=== PATIENT | male | born 1990 | race African-American/Black ===

== ENCOUNTER 2018-06-16 01:11 | Emergency (ER) | payer MEDICARE, OTHER ==
[~2018-06-16] VITALS: Ht 177.8 cm; Wt 72.6 kg
--- NOTE | 2018-06-16 01:35 | Emergency Room Report ---
History of Present Illness General Chief Complaint: Skin Rash/Abscess Source: Patient Present Illness HPI Patient with h/o eczema. Has generalized rashes on trunk and extremities. Itching and bumpiness. No pain. No medication at this time. Usually controlled with hydrocortisone. No allergic exposure. No fevers, dyspnea, throat swelling, cough, dysuria, joint pain, headache. Tetanus UTD. Allergies: Coded Allergies: No Known Allergies (Unverified , 06/16/18) Patient History Past Medical History: see triage record Social History: Reports: smoking Social History Narrative home Reviewed Nursing Documentation: PMH: Agreed; PSxH: Agreed Nursing Documentation-PMH Past Medical History: No Stated History Review of Systems All Other Systems: negative except mentioned in HPI Physical Exam Vital Signs Date Time Temp Pulse Resp B/P (MAP) Pulse Ox O2 Delivery O2 Flow Rate FiO2 06/16/18 01:25 98.4 82 16 120/70 98 Room Air 98.4 Sp02 EP Interpretation: reviewed, normal General Appearance: well appearing, no apparent distress, GCS 15 Head: normocephalic, atraumatic ENT: hearing grossly normal, normal voice, moist mucus membranes Neck: full range of motion, supple Respiratory: lungs clear, no respiratory distress, speaking full sentences Cardiovascular #1: regular rate, rhythm Cardiovascular #2: 2+ radial (R) Gastrointestinal: normal inspection, scaphoid Musculoskeletal: digits/nails normal, gait/station normal, normal range of motion Neurologic: alert, oriented x3, normal gait, grossly normal Psychiatric: mood/affect normal Skin: other - maculopapular rash trunk, geographic, some related to follicles, no vesicles or pustules - not in areas of T versicolor Medical Decision Making Diagnostic Impression: Primary Impression: Eczema Qualified Codes: L30.9 - Dermatitis, unspecified Additional Impression: Folliculitis ER Course Patient with rash and h/o eczema. Ddx: allergy, fungal, eczema, folliculitis, cellulitis amongst others. Indication for topical treatment. No evidence of cellulitis. Discussed treatment plan with patient. Patient stable for outpatient observation and treatment. Status: unchanged Disposition: HOME, SELF-CARE Condition: Stable Scripts Bacitracin (Bacitracin) 28.4 Gm Oint...g. 1 APPLIC TOPIC BID, #30 GM Prov: Marcellus Bhagat M.D. 8/27/18 Triamcinolone Acetonide (Triamcinolone Acetonide) 15 Gm Oint...g. 1 APPLIC TOPIC BID, #30 GM Prov: Marcellus Bhagat M.D. 06/16/18 Marcellus Bhagat M.D. Jun 16, 2018 01:34
[2018-06-16] MEDS ORDERED: KENALOG1 APPLIC TOPIC (01:38)
[2018-06-16] MEDS ORDERED: BACITRACIN15 GM TOPIC (01:38)
[2018-06-16 02:07] VITALS: BP 120/70
[2018-06-16 02:09] VITALS: BP 120/70
== END 2018-06-16 02:10 | disposition home or self-care (01) ==
LOC: EMR 01:34
DX: L30.9 Dermatitis, unspecified (principal); L73.9 Follicular disorder, unspecified
CPT/HCPCS: 99283